=== PATIENT | male | born 1980 | race Caucasian/White ===

== ENCOUNTER 2017-05-12 10:48 | Emergency (ER) | payer BC ==
[2017-05-12 11:11] VITALS: BP 131/79
--- NOTE | 2017-05-12 11:28 | UC ---
Skin Complaint HPI - HPI Summary HPI Summary: boil on the penis x 2 days + swelling , redness, discharge, tender no fever, no chills - History of Current Complaint Chief Complaint: UCRash Time Seen by Provider: 05/12/17 11:06 Stated Complaint: SKIN COMPLAINT Hx Obtained From: Patient Onset/Duration: Gradual Onset, Lasting Days - 2, Still Present Timing: Constant Onset Severity: Moderate Current Severity: Moderate Location: Other - penis shaft Character: Swelling, Pain, Redness, Raised, Painful Aggravating Factor(s): Touch Alleviating Factor(s): Nothing Associated Signs & Symptoms: Positive: Fever, Chills. Negative: Nausea, Numbness - Allergy/Home Medications Allergies/Adverse Reactions: Allergies Allergy/AdvReac Type Severity Reaction Status Date / Time No Known Allergies Allergy Verified 05/12/17 11:11 Review of Systems Constitutional: Fever ENT: Sore Throat Respiratory: Cough Is Patient Immunocompromised?: No All Other Systems Reviewed And Are Negative: Yes PMH/Surg Hx/FS Hx/Imm Hx Previously Healthy: Yes - Surgical History Surgical History: Yes Surgery Procedure, Year, and Place: ADENOIDECTOMY - Family History Known Family History: Negative: Diabetes - Social History Alcohol Use: Occasionally Substance Use Type: None Smoking Status (MU): Never Smoked Tobacco - Immunization History Most Recent Tetanus Shot: not sure Physical Exam Triage Information Reviewed: Yes Appearance: Well-Appearing, No Pain Distress, Well-Nourished Vital Signs: Initial Vital Signs Temp 98.2 F 05/12/17 11:06 Pulse 85 05/12/17 11:06 Resp 18 05/12/17 11:06 BP 131/79 05/12/17 11:06 Vital Signs Reviewed: Yes Eyes: Positive: Conjunctiva Clear ENT: Positive: Normal ENT inspection, Hearing grossly normal, Pharynx normal, Pharyngeal erythema Neck: Positive: Supple, Nontender Respiratory Exam: Normal Respiratory: Positive: Chest non-tender, Lungs clear, Normal breath sounds Cardiovascular: Positive: RRR, No Murmur, Pulses Normal Skin: Positive: Other - abscess proximal penile shaft , + swelling, erythema, tender , + discharge Course/Dx - Diagnoses Provider Diagnoses: abscess penis Discharge - Discharge Plan Condition: Stable Disposition: HOME Prescriptions: Cephalexin CAP* [Keflex CAP*] 500 mg PO TID #21 cap Patient Education Materials: Abscess (ED) Referrals: Dennis Arana MD [Primary Care Provider] - If Needed
== END 2017-05-12 11:27 | disposition home or self-care (01) ==
LOC: UCCORT 10:48
DX: N48.21 Abscess of corpus cavernosum and penis (principal); Z72.89 Other problems related to lifestyle
CPT/HCPCS: 99212; G0463

== ENCOUNTER 2017-10-19 08:02 | Emergency (ER) | payer BC ==
[2017-10-19 08:15] VITALS: BP 107/72
--- NOTE | 2017-10-19 08:18 | UC ---
Skin Complaint HPI - HPI Summary HPI Summary: Pt with draining wound under right chin - pt states was shaving 2-3 days ago when developed wound. Pt states has become more large = pt has been able to squeeze thick pus from wound. Pt has had several similar wounds on body. Pt concerned because this i more painful and lasting long. no fever, no chills. not immunocompromised. No h/o MRSA tdap utd Pt's medications reviewed this visit - History of Current Complaint Chief Complaint: UCSkin Time Seen by Provider: 10/19/17 08:17 Stated Complaint: SKIN CONCERN Hx Obtained From: Patient Onset/Duration: Gradual Onset Skin Exposure Onset/Duration: Days Ago Onset Severity: Mild Current Severity: Mild Pain Intensity: 3 - Allergy/Home Medications Allergies/Adverse Reactions: Allergies Allergy/AdvReac Type Severity Reaction Status Date / Time No Known Allergies Allergy Verified 10/19/17 08:14 Home Medications: Home Medications Ibuprofen TAB* [Advil TAB*] 400 mg PO Q6H PRN 10/19/17 [History Confirmed ] Review of Systems Constitutional: Negative Skin: Other - lesion under chin All Other Systems Reviewed And Are Negative: Yes PMH/Surg Hx/FS Hx/Imm Hx Previously Healthy: Yes - Surgical History Surgical History: Yes Surgery Procedure, Year, and Place: ADENOIDECTOMY - Family History Known Family History: Negative: Diabetes - Social History Occupation: Employed Full-time Lives: With Family Alcohol Use: Occasionally Substance Use Type: None Smoking Status (MU): Never Smoked Tobacco - Immunization History Most Recent Tetanus Shot: not sure Physical Exam - Summary Physical Exam Summary: Vital Signs Reviewed: Yes A+Ox3, no distress Eyes: Conjunctiva Clear ENT: Hearing grossly normal neck: supple Respiratory: Positive: No respiratory distress, No accessory muscle use Cardiovascular: skin color reflect adequate perfusion Musculoskeletal Exam: PEREZ x 4 without difficulty Neurological: Positive: Alert, ambulatory without difficulty Psychological: Positive: Normal Response To Family Skin: under right chin, submandibular area - pt with are of erythema, quarter sized. + white purluent discharge no fluctuance mild induration no intra-oral edema Triage Information Reviewed: Yes Vital Signs: Initial Vital Signs Temp 98.6 F 10/19/17 08:10 Pulse 54 10/19/17 08:10 Resp 14 10/19/17 08:10 BP 107/72 10/19/17 08:10 Pulse Ox 100 10/19/17 08:10 Course/Dx - Course Course Of Treatment: Pt with skin wound under chin s/p shaving. + erythema with drainage. + induration. no fluctance. warm soaks. cultures. doxy. motri/apap. return precaution - Diagnoses Provider Diagnoses: cellulitis. drianing abscess Discharge - Sign-Out/Discharge Documenting (check all that apply): Discharge/Admit/Transfer - Discharge Plan Condition: Stable Disposition: HOME Prescriptions: Nitrofurantoin Monohyd/M-Cryst [Macrobid 100 mg Capsule] 100 mg PO BID #14 cap Sulfamethox/Trimethoprim DS* [Bactrim DS 800/160 TAB*] 1 tab PO BID #14 tab Patient Education Materials: MRSA (Methicillin-Resistant Staphylococcus Aureus ) (ED), Abscess (ED) Referrals: Dennis Arana MD [Primary Care Provider] - Additional Instructions: - Keep area clean. Apply wet, warm soaks to your skin wound 2-3 times a day - Take antibiotics as prescribed until gone -Cover your wound with a thin layer of antibiotic ointment such as neosporin or polysporin. - Okay to alternate ibuprofen (Advil, Motrin) and tylenol every 3hours for pain. Take with food - Your wound will be sent for additional testing - if you need a different antibiotic you will receive a call from a care team guide - contact your doctor or return for increased pain, swelling, fever, swelling inside your mouth or other concerns - Billing Disposition and Condition Condition: STABLE Disposition: Home
--- NOTE | 2017-10-19 16:02 | UC ---
- Progress Note Progress Note: Culture gram stain with Staph, no MRSA. Macrobid will not cover staph in the skin, Bactrim sent in. Patient to be notified. Discharge - Sign-Out/Discharge Documenting (check all that apply): Discharge/Admit/Transfer - Discharge Plan Condition: Stable Disposition: HOME Prescriptions: Nitrofurantoin Monohyd/M-Cryst [Macrobid 100 mg Capsule] 100 mg PO BID #14 cap Sulfamethox/Trimethoprim DS* [Bactrim DS 800/160 TAB*] 1 tab PO BID #14 tab Patient Education Materials: MRSA (Methicillin-Resistant Staphylococcus Aureus ) (ED), Abscess (ED) Referrals: Dennis Arana MD [Primary Care Provider] - Additional Instructions: - Keep area clean. Apply wet, warm soaks to your skin wound 2-3 times a day - Take antibiotics as prescribed until gone -Cover your wound with a thin layer of antibiotic ointment such as neosporin or polysporin. - Okay to alternate ibuprofen (Advil, Motrin) and tylenol every 3hours for pain. Take with food - Your wound will be sent for additional testing - if you need a different antibiotic you will receive a call from a care steamship agent - contact your doctor or return for increased pain, swelling, fever, swelling inside your mouth or other concerns - Billing Disposition and Condition Condition: STABLE Disposition: Home
== END 2017-10-19 08:39 | disposition home or self-care (01) ==
LOC: UCCORT 08:02
DX: L03.211 Cellulitis of face (principal); B95.61 Methicillin susceptible Staphylococcus aureus infection as the cause of diseases classified elsewhere; L02.01 Cutaneous abscess of face; W26.8XXA Contact with other sharp object(s), not elsewhere classified, initial encounter; Y93.E8 Activity, other personal hygiene; Y92.002 Bathroom of unspecified non-institutional (private) residence as the place of occurrence of the external cause
CPT/HCPCS: 87070; 87077; 87186; 87205; 87640; 87641; 99212; G0463